=== PATIENT | female | born 1955 | race Hispanic/Latino ===

== ENCOUNTER 2016-10-25 09:01 | Inpatient (IN) | payer OTHER ==
[2016-10-25] VITALS (7 sets, daily range): BP systolic 120–161; BP diastolic 62–88; PULSE 60–61; RESP 16–20; O2SAT 93–99
[~2016-10-25] VITALS: Ht 157.5 cm; Wt 134.2 kg
[~2016-10-25 09:01] MED LIST: ASPI-973 PO; ATOR80TA PO; BUPR150T9 PO; CHOL100045 PO; CLOP75TA28 PO; CYAN500 PO; FLUO20CA25 PO; FLUT1DIS5 IH; FRSM80T PO; INSLIS SUBQ; INSU100V7 SUBQ; ISOS60TA2 PO; METO100T3 PO; MTH4T PO; RANI150T11 PO
[2016-10-25] MEDS ORDERED: Polyethylene Glycol (PEG) 17 Gm Powder PO PRN (11:00)
[2016-10-25] MEDS ORDERED: Ondansetron 2 mg/mL 2 mL Inj IVPUSH PRN (11:00)
[2016-10-25] MEDS ORDERED: Atropine 1 mg/10 mL (Code) Syringe IVPUSH PRN (11:00)
[2016-10-25] MEDS ORDERED: Alum-Mag Hydrox-Simeth 30 mL Suspension PO PRN (11:00)
[2016-10-25] MEDS ORDERED: Senna-Docusate 8.6-50 mg Tablet PO PRN (11:00)
[2016-10-25] MEDS ORDERED: WARF7.5T4 PO (13:20)
[2016-10-25] MEDS ORDERED: FERR324T2 PO (13:21)
--- NOTE | 2016-10-25 13:38 | NUR ---
Feliberto/ Hypoglycemia Pt admitted to [facility] from home around 0930. Pt A&Ox3, vitals stable and family at bedside. Admit completed including med rec from home pill bottles. No c/o pain, just slight SOB, placed on 2L NC. MD aware and rounding soon. Baseline EKG done. Blood Glucose checked for lunch and the pt was 46. Gave a couple orange juices, along with a coke. Pt diaphoretic and stating she isn't feeling well and extremely anxious. IV trying to be started by another RN and needed to call IV therapy, they will be by shortly. Blood sugar checked Q15 min till her last blood sugar was 183. Will page and get sliding scale ordered. Continue to monitor
[2016-10-25] MEDS ORDERED: Glucose 40% Oral Gel 15 Gm Tube PO PRN (15:00)
[2016-10-25] MEDS: Sodium Chloride LOK Flush 10 mL Syringe IVFLUSH SCH ×2 (17:01→22:23)
[2016-10-25] MEDS: Insulin LISPRO 300 Unit/3 mL Inj SUBQ SCH ×2 (17:47→21:39)
--- NOTE | 2016-10-25 18:46 | HP ---
[address] [address] HISTORY AND PHYSICAL PATIENT: BERENICE PACE : 1955 MR#: [id number] ADMIT: 10/25/2016 JOB ID: [id number] DATE OF SERVICE: 10/25/2016 CHIEF COMPLAINT: Paroxysmal AFib and palpitations. HISTORY OF PRESENT ILLNESS: The patient is a delightful, 61-year-old woman with coronary artery disease, status post percutaneous coronary intervention to right coronary artery; diabetes (uncontrolled), sick sinus syndrome and paroxysmal AFib, status post dual-chamber permanent pacemaker. She also has hyperlipidemia and excess weight. She is admitted for sotalol load after experiencing chest discomfort and palpitations with relatively reassuring pharmacologic stress test with myocardial perfusion imaging, April 2016. Her atrial fibrillation burden is reported by the device as being 1.1%, with both paroxysmal atrial fibrillation and paroxysmal atrial flutter. 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 She is pacemaker dependent and 95% A-paced. REVIEW OF SYSTEMS: Significant for severe fatigue and disabling palpitations, most recently at her daughter's wedding, which were correlated and timed to atrial flutter with rapid ventricular response. This is happening despite taking Toprol-XL 200 mg twice a day. PAST MEDICAL HISTORY: 1. Coronary artery disease, status post stent and rotablator to RCA; 3 x18 Xience drug-eluting stent was deployed. 2. Repeat cardiac catheterization, September 2012, for exertional chest tightness and crescendo angina demonstrated 90-95 proximal RCA stenosis. This was noted in October 2012 and this is the lesion that was treated with rotablator. It appears to be due to in-stent restenosis and Xience drug-eluting stent, 3.5 x 15 was deployed. 3. Diabetes--uncontrolled. Most recent hemoglobin A1c was 9.9%. 4. Hyperlipidemia--controlled with the exception of elevated triglycerides. 5. Paroxysmal AFib, diagnosed July 2012; unable to tolerate amiodarone due to hyperthyroidism. 6. Tachybrady syndrome, status post [facility] dual-chamber permanent pacemaker implanted August 04, 2012. 7. Paroxysmal A-flutter, status post cavotricuspid isthmus ablation, performed May 16, 2013. 8. Obstructive sleep apnea. 9. Excess weight. BMI greater than 40. 10. Family history of coronary artery disease. 11. Depression. 12. Residual suppressed TSH. SOCIAL HISTORY: The patient lives at home with family. She does not smoke and does not drink alcohol in excess. FAMILY HISTORY: Daughter with congenital heart disease and another daughter with diabetes. ALLERGIES: AMIODARONE, as outlined above. HOME MEDICATIONS: 1. Atorvastatin 80 mg daily. 2. Metoprolol tartrate 200 mg twice a day. 3. Lasix 80 mg daily. 4. Imdur 60 mg daily. 5. Bupropion 150 mg daily. 6. Fluoxetine 40 mg daily. 7. Lispro sliding scale insulin, but she says she actually takes 30 units subcutaneously twice a day. 8. Lantus 30 units subcutaneously twice a day. 9. Bydureon was prescribed but patient has not started yet. 10. Zantac 150 mg twice a day. 11. Warfarin dosed by the pro-time nurse. Currently patient is taking 7.5 mg Tuesday, Tuesday, Tuesday, , Tuesday, Tuesday and Tuesday. Her most recent INR was actually 5, as of October 21, 2016. She was instructed to skip/hold medication for two days. REVIEW OF SYSTEMS: Significant for easy bleeding, bruising, fatigue, chest pain, irregular heartbeat and awareness of palpitations, shortness of breath, dizziness, muscle weakness. Otherwise, 10-point review of systems is negative. PHYSICAL EXAMINATION: Weight 300 pounds, blood pressure 120/70, heart rate is 60 beats per minute. Overweight woman lying flat in bed. No apparent distress. Eyes: No scleral icterus. Neck supple. No lymphadenopathy. No carotid bruits. Heart: Normal S1, S2. No murmurs. Lungs: Clear to auscultation anteriorly. Abdomen soft, positive bowel sounds. No hepatosplenomegaly. Extremities: Warm, well perfused. No clubbing, cyanosis, or edema. Skin: No rashes or lesions. Neuro grossly intact. Her labs have been reviewed. Her magnesium is 2. Other labs are ordered and pending. INR has been ordered and pending. Most recent labs in clinic showed creatinine of 1, potassium 4.5. Hematocrit is normal. Liver function tests were significant for slightly elevated alkaline phosphatase at 152, otherwise normal. Most recent INR was 5, and she was instructed to hold two doses of her warfarin. EKG is reassuring. Normal sinus rhythm. A-paced, V-sensed. ASSESSMENT AND PLAN: This is a 61-year-old woman with paroxysmal atrial fibrillation. She is admitted with sotalol load. Will continue all her home meds plus add sotalol. Given that she is a diabetic, she would ideally also benefit from initiating GUS inhibitor, and will discuss that in a little bit more detail tomorrow. Of note, her LV systolic function is preserved. Thank you very much for the opportunity to participate in her care.
[2016-10-25] MEDS: Insulin GLARgine 100 Unit/mL Syringe SUBQ SCH (21:32)
[2016-10-25 22:05] LABS: INR 2.34 ratio
--- NOTE | 2016-10-25 23:52 | PCM.CONPHA ---
Subjective Date of Service: Oct 25, 2016 Objective Vital Signs Date Time Temp Pulse Resp B/P Pulse Ox O2 Delivery O2 Flow Rate FiO2 10/25/16 23:36 37.2 61 20 153/78 99 Nasal Cannula 1.00 10/25/16 21:47 Supplement Oxygen 10/25/16 21:45 36.7 60 18 158/62 98 Nasal Cannula 2.00 10/25/16 20:00 60 10/25/16 17:02 Supplement Oxygen 10/25/16 16:29 34.7 60 17 139/63 98 Room Air 10/25/16 12:44 36.4 60 16 161/88 93 10/25/16 09:09 36.9 60 18 120/62 93 Room Air 10/25/16 09:07 60 Weight (Kilograms): 137.200 Height (Feet): 5 Height (Inches): 2.00 Test 10/25/16 13:45 10/25/16 21:36 Magnesium Level 2.0mg/dL (1.6-2.6) Prothrombin Time 25.5sec (8.1-12.5) Prothromb Time International Ratio 2.34ratio Assessment/Plan Assessment/Plan WARFARIN MANAGEMENT A\ 61 YO F admitted for AFIB Home dose Warfarin 7.5mg PO daily Current INR=2.34 Goal INR =2-3 Rn reports no bleeding. Pt had not taken Warfarin tonight P\ Will continue home Warfarin 7.5mg po x1 tonight and will check INR in the morning Carter Rosa [facility] Oct 25, 2016 23:52
[2016-10-26] VITALS (8 sets, daily range): BP systolic 142–178; BP diastolic 68–82; PULSE 59–63; RESP 17–20; O2SAT 92–98
[2016-10-26 03:32] LABS: Mean Corpuscular Volume 94.5 fL (81-100)
[2016-10-26 03:54] LABS: INR 2.58 ratio
--- NOTE | 2016-10-26 06:41 | NUR ---
Glucose/Tele Assumed care @ 1930. A/O, noted to have increase/elevated glucose levels, Insulin per SS/orders; last glucose check trending down Pt. indicated some chest pain intermittently, which resolved on its own. Noted to have decrease SPO2 (85-89%) when sleeping. 02 increase to 3L, and continuous pulse oximeter in place. Tele: A-Paced in 60's, with periods of PMT (Pacer Mediated Tachycardia) - pt. denies pain or symptoms.
[2016-10-26] MEDS: Insulin LISPRO 300 Unit/3 mL Inj SUBQ SCH ×4 (08:00→22:17)
[2016-10-26] MEDS: buPROPion XL 150 mg ER24 Tablet PO SCH (08:41)
[2016-10-26] MEDS: Sodium Chloride LOK Flush 10 mL Syringe IVFLUSH SCH ×3 (08:41→23:40)
[2016-10-26] MEDS: Insulin GLARgine 100 Unit/mL Syringe SUBQ SCH ×2 (08:41→21:29)
[2016-10-26] MEDS: Isosorbide Mononitrate 60 mg ER24 Tablet PO SCH (08:44)
--- NOTE | 2016-10-26 13:39 | NUR ---
AM Glucose/ Insulin AM glucose was 166. Administered 30 units of Lantus, with held sliding scale till after Sotolol was given due to hypoglycemia episode yesterday. Rechecked blood glucose for lunch and it was 309. Administered the full amount of sliding scale insulin with lunch. Will continue to monitor.
--- NOTE | 2016-10-27 03:30 | PROG NOTE ---
[address] [address] PROGRESS NOTE PATIENT: BERENICE PACE : 1955 MR#: [id number] ADMIT: 10/25/2016 JOB ID: [id number] DATE: 10/26/2016 SUBJECTIVE: Overnight, patient had brief episodes of palpitations. She says no chest pain or shortness of breath. OBJECTIVE: Vital signs: Temperature 37.1 degrees, blood pressure 142/82, up to 178/76, pulse 59 to 63 beats per minute, satting 92% to 98% on 1 to 2 L nasal cannula. Well-nourished woman in no apparent distress. Eyes: No scleral icterus. Heart: Normal S1, S2. No murmurs, rubs, or gallops. Lungs: Clear to auscultation anteriorly. Abdomen: Soft, positive bowel sounds. No hepatosplenomegaly. MEDICATIONS: Reviewed. She is tolerating sotalol load with normal QT interval corrected for rate and she denies any chest discomfort. On telemetry, she is mostly paced but she did have episodes of what appears to be atrial tachycardia that was tracked. A limited device check was done and basically her atrium was mostly electrically silent even when the backup rate was turned down to 40 beats per minute. However, intermittently she will go into atrial tachycardia with tracking. ASSESSMENT AND PLAN: 1. A 61-year-old woman with paroxysmal atrial fibrillation admitted for sotalol load. Continue her home meds and add sotalol. a. Continue monitoring QT interval corrected for rate 2 hours after each dose. 2. Hypertension: Patient's blood pressure is uncontrolled despite metoprolol tartrate 100 twice a day, sotalol 80 mg twice a day, Lasix 80 mg daily. I recommend adding lisinopril, will start at a medium dose of 10 mg daily and monitor the patient closely. 3. Atrial tachycardia. Device check was performed by Branden from [facility] and his impression is that the A-sensed, V-paced episodes are due to 2:1 tracking . My plan is to drop to tracking rate from 130 beats per minute down to 100 beats per minute. Thank you very much for the opportunity to evaluate her.
[2016-10-27 04:23] VITALS: BP 154/90; PULSE 60; RESP 18; O2SAT 99
[2016-10-27 04:57] LABS: INR 3.09 ratio
--- NOTE | 2016-10-27 05:15 | NUR ---
skin tear lab removed tape from previous lab draw and pts skin tore at the left inner elbow, placed tele and op site over skin tear.
--- NOTE | 2016-10-27 05:34 | NUR ---
blood glucose pts BG at 2130 263 gave 30units of lantus at 2215 pts BG 247 gave 2units regular insulin, rechecked BG at 0300 178 and at 0520 BG 112, pt asymptomatic, will cont to monitor
[2016-10-27] MEDS: Insulin LISPRO 300 Unit/3 mL Inj SUBQ SCH ×2 (08:00→12:04)
[2016-10-27] MEDS: Insulin GLARgine 100 Unit/mL Syringe SUBQ SCH (08:49)
[2016-10-27 08:51] VITALS: BP 153/51; PULSE 60; RESP 20; O2SAT 98
[2016-10-27] MEDS: Isosorbide Mononitrate 60 mg ER24 Tablet PO SCH (08:55)
[2016-10-27] MEDS: Sodium Chloride LOK Flush 10 mL Syringe IVFLUSH SCH (08:55)
[2016-10-27] MEDS: buPROPion XL 150 mg ER24 Tablet PO SCH (08:55)
[2016-10-27 11:18] VITALS: PULSE 60
[2016-10-27 14:10] VITALS: BP 129/57; PULSE 60; RESP 20; O2SAT 93
--- NOTE | 2016-10-27 16:07 | PCM.DIMED ---
Discharge Instructions Date of Service Oct 27, 2016 Dates of Hospitalization Oct 25, 2016 at 09:01 Discharge Diagnosis Discharge Diagnosis paroxysmal afib Medication Instructions Additional med instructions start 2 new medicines: Sotalol 80 mg twice a day and Lisinopril 10 mg daily Diet Discharge Diet: Heart Healthy, Diabetic Activity Discharge Activity: No restrictions Call your provider Call your provider for: Shortness of breath, Chest pain Patient Instructions Patient Instructions follow up in about 1 month Follow-up with PCP in: 4 weeks Provider: Magi Mensah MD, Yelena K MD Oct 27, 2016 16:07
[2016-10-27] MEDS ORDERED: LISI-610 PO (16:11)
[2016-10-27] MEDS ORDERED: METO100T3 PO (16:11)
[2016-10-27] MEDS ORDERED: BET80 PO (16:11)
--- NOTE | 2016-10-27 16:11 | PCM.DIMED ---
Discharge Instructions Date of Service Oct 27, 2016 Dates of Hospitalization Oct 25, 2016 at 09:01 Discharge Diagnosis Discharge Diagnosis paroxysmal afib Medication Instructions Additional med instructions start 2 new medicines: Sotalol 80 mg twice a day and Lisinopril 10 mg daily reduce metoprolol from 200 mg twice a day to 100 mg twice a day Diet Discharge Diet: Heart Healthy, Diabetic Activity Discharge Activity: No restrictions Call your provider Call your provider for: Shortness of breath, Chest pain Patient Instructions Patient Instructions follow up in about 1 month Follow-up with PCP in: 4 weeks Provider: Magi Mensah MD, Yelena K MD Oct 27, 2016 16:11
--- NOTE | 2016-10-27 17:04 | DIS ---
[address] [address] DISCHARGE SUMMARY PATIENT: BERENICE PACE : 1955 MR#: [id number] ADMIT: 10/25/2016 JOB ID: [id number] DIS: 10/27/2016 DISCHARGE DIAGNOSES: 1. Paroxysmal atrial fibrillation. 2. Paroxysmal atrial flutter. 3. Dual-chamber permanent pacemaker where patient is pacemaker dependent and about 90% atrial paced. HOSPITAL COURSE: The patient was admitted for sotalol. Sotalol was loaded. QT interval remained low most recently at 440 msec. The patient had no VT. In the course of her hospitalization, I noted that her rate response feature was overly aggressive so I made some programming adjustments because I noticed that when she would get up to go to the restroom her rate would rev up to 130 beats per minute and she was feeling short of breath and tired when this was happening, so what I did was I dropped her upper tracking rate and upper sensor rate from 130 beats per minute to 100 beats per minute. I prolonged her sensed AV delay from 170 msec up to 225 msec. I prolonged her paced AV delay from 200 msec up to 250 msec. I dropped the slope on her activity sensor from 12 down to 7, and I dropped her response from fast to slow. She got up to go to the bathroom and she said she felt much, much better. She is happy with how she is doing. Additionally, worked on hypertension management. I started lisinopril 10 mg daily. She is tolerating it well with no cough. Therefore patient is discharged home in stable condition on the following medications: 1. Atorvastatin 80 mg daily. 2. Aspirin 81 mg daily. 3. Sotalol 80 mg twice a day, new medication. 4. Metoprolol tartrate dose reduced from 200 mg twice a day down to 100 mg twice a day. 5. Lisinopril, new medication, 10 mg daily. 6. Bupropion 150 mg daily. 7. Vitamin D3 1000 International Units daily. 8. Iron sulfate 324 mg daily. 9. Fluoxetine 40 mg daily. 10. Lasix 80 mg daily. 11. Lantus 40 mg twice a day. 12. Lispro sliding scale as instructed by primary care provider. 13. Imdur 60 mg daily. 14. Zantac 150 mg twice a day. 15. Warfarin 7.5 mg daily. Thank you very much for the opportunity to participate in this patient's care. I anticipate seeing her in clinic in about a month.
--- NOTE | 2016-10-27 17:07 | NUR ---
Discharge The pt left with a [employer] via wheelchair at 1710 with all her belongings. The pt and her daughter verbalized understanding of all the discharge teaching presented, including new scripts and follow up appointment info. The pt left A&Ox3 with VSS, and is being transported home with her daughter.
--- NOTE | 2016-10-27 17:17 | NUR ---
Social Work: Screening / Discharge Data: Pt is a 61 y/o female admitted for sotalol loading for afib. Pt's PCP is Dr Villeda, pt's insurance is [employer] [place]. EMR reviewed. D/C orders are in. Pt discussed in multidisciplinary rounds. Readmit score is 3. No d/c planning needs identified at this time. DIST[employer]BUTION TRANSFORMER [employer]SEMBLER will continue to follow if needs arise. Assessment: Pt who is independent at baseline, currently capable of self care. Plan: Pt will d/c home today via POV. No d/c planning needs identified at this time. [employer] TRANSFORMER [employer]SEMBLER will continue to follow if needs arise. CAROLANN Castro
== END 2016-10-27 17:24 | disposition home or self-care (01) | DRG 309 ==
LOC: PCC 09:01
PROVIDERS: ADMIT Internal Medicine; ATTEND Internal Medicine
PROC: 5A2204Z Restoration of Cardiac Rhythm, Single (ICD-10-PCS; principal; 2016-10-25)
DX: I48.0 Paroxysmal atrial fibrillation (principal); Z68.43 Body mass index [BMI] 50.0-59.9, adult; Z95.0 Presence of cardiac pacemaker; Z95.5 Presence of coronary angioplasty implant and graft; I48.92 Unspecified atrial flutter; G47.33 Obstructive sleep apnea (adult) (pediatric); Z79.4 Long term (current) use of insulin; Z79.01 Long term (current) use of anticoagulants; I10 Essential (primary) hypertension; I47.1 Supraventricular tachycardia

== ENCOUNTER 2016-11-18 16:23 | Emergency (ER) | payer OTHER ==
[~2016-11-18] VITALS: Ht 157.5 cm; Wt 128.6 kg
[~2016-11-18 16:23] MED LIST changes: +BET80 PO; -CLOP75TA28 PO; -CYAN500 PO; +FERR324T2 PO; -FLUT1DIS5 IH; +LISI-610 PO; -MTH4T PO; +WARF7.5T4 PO
[2016-11-18 16:26] VITALS: BP 104/52; PULSE 60; RESP 20; O2SAT 96
--- NOTE | 2016-11-18 16:29 | ED.REPORT ---
HPI-General Illness Date of Service Nov 18, 2016 ED Provider: Dr. Kenney Pt is a 61 y/o Yemeni speaking female anticoagulated on Warfarin w/ a hx of CAD s/p stenting, paroxysmal a-fib, IDDM, HTN, presenting to the ED with her family c/o diarrhea onset 3 days ago. The patient had a syncopal episode 4 days ago and since the event has been experiencing watery diarrhea about 5-6 episodes each day with associated lightheadedness, weakness, anorexia, some bowel incontinence, and nausea. Pt denies bloody stool, abdominal pain, fever, sore throat, cough, REID, sick contacts, abnormal food consumption, dysuria. She recently started 2 new medications about 2-3 weeks ago, Bydureon for diabetes and an unknown cardiac med. Her last injection of Bydureon was 4 days ago and the previous 2 injections caused no problems. She has had cholecystectomy and C- sections. PCP: [facility]: [facility] Nursing Notes Stated Complaint: A-FIB, DIARRHEA, SENT BY Chief Complaint: Dysrhythmia/Cardiac Nursing Notes Reviewed: Yes Allergies: Coded Allergies: amiodarone (Verified Allergy, Severe, Med interfernece, 12/07/15) Scheduled Aspirin (Aspirin) 81 Mg Tablet 81 MG PO DAILY Atorvastatin (Lipitor) 80 Mg Tablet 80 MG PO HS Bupropion HCl (Zyban) 150 Mg Tablet.er 150 MG PO DAILY Cholecalciferol (Vitamin D3) (Vitamin D) 1,000 Unit Capsule 1,000 MG PO DAILY Ferrous Sulfate (Ferrous Sulfate) 324 Mg Tablet. 324 MG PO DAILY Fluoxetine (Fluoxetine) 20 Mg Capsule 40 MG PO QAM Furosemide (Furosemide) 80 Mg Tab 80 MG PO DAILY Increase to 160mg if retaining fluid. Insulin Glargine (Lantus U100 Insulin Vial) 100 Unit/Ml Vial 40 UNIT SUBQ BID Insulin Human Lispro (HumaLOG U100 Insulin Vial) 100 Unit/Ml Unit UNITS SUBQ TIDAC Dosage according to sliding scale Isosorbide MN ER (Isosorbide MN ER) 60 Mg Tab.er.24h 60 MG PO DAILY Lisinopril (Zestril) 10 Mg Tablet 10 MG PO DAILY Metoprolol Tartrate (Metoprolol Tartrate) 100 Mg Tablet 100 MG PO BID Ondansetron ODT (Ondansetron ODT) 4 Mg Tab.rapdis 4 MG PO TID Ranitidine (Zantac) 150 Mg Tablet 150 MG PO BID Sotalol (Betapace) 80 Mg Tablet 80 MG PO BID Warfarin Sodium (Warfarin Sodium) 7.5 Mg Tablet 7.5 MG PO DAILY General Time Seen by MD: 16:28 Chief Complaint Diarrhea Hx Obtained From: Patient Arrived By: Walk-in Sudden in Onset?: No Onset Occurred: 4 days ago Symptom Duration: Since onset Severity: Current: No pain currently Severity: Maximum: No pain Recent Healthcare: No recent hospitalization Past Medical History Past Medical History CAD s/p cardiac stent (05/2014) Admit for severely supratherapeutic INR in 09/2013 Admit for sepsis, [facility] Pneumonia h/o paroxysmal Afib/Flutter Chronic lower extremity edema Sleep apnea/Obesity hypoventilation syndrome on home O2 at night Restless leg syndrome Chronic Back Pain Pulmonary Nodule TachyBrady Insulin dependent diabetes mellitus Hypertension GERD Past Surgical History Cardiac ablation Cardiac stent placement proximal RCA 06/04/2014 Ablation for A-flutter 04/2013 Reports: Angioplasty, , Cataract surgery, Cholecystectomy Reports: Pacemaker insertion Smoking History Never Smoker Social History Interpreting Alcohol Use: Denies alcohol use Drug Use: Denies drug use Ambulatory Status Independent Review of Systems Full Review of Systems Constitutional: Denies: Fever Ears / Nose / Throat: Denies: Sore throat Respiratory: Denies: Non-productive cough GI: Reports: Diarrhea, Nausea, Denies: Abdominal pain, Bloody/tarry stool, Vomiting Female: Denies: Dysuria Neurologic: Reports: Bowel dysfunction, Lightheaded, Denies: Headache Complete sys rev & neg: except as marked. Physical Exam Vital Signs Vital Signs Date Time Temp Pulse Resp B/P Pulse Ox O2 Delivery O2 Flow Rate FiO2 11/18/16 22:34 85 16 105/85 98 11/18/16 21:20 63 18 105/64 100 11/18/16 18:00 88 12 101/64 98 Room Air 11/18/16 16:26 36.2 60 20 104/52 96 Room Air Initial VS: Reviewed, Vital signs normal Head / Eyes: Atraumatic, Normocephalic ENT: Mucous membranes moist, Conjunctiva normal Neck: Full range of motion Respiratory: Breath sounds normal, Clear to auscultation, No respiratory distress Cardiovascular: Regular rate & rhythm, Heart sounds normal Extremities: Vascular intact, Neuro intact, No swelling Skin: Warm, Dry, No cyanosis Neurologic: Alert, Oriented, Nonfocal Psychiatric: Mood/affect normal, Behavior normal, Normal thought content General/Constitutional: Awake, Alert, Cooperative, Not toxic appearing Appearance / Presentation: Positive: Obese, morbidly Abdomen: Atraumatic, Soft, No guarding, No rebound, BS normoactive Tenderness/Guarding/Rebound: Positive: Tender epigastric (mild) Interpretation & Diagnostics Lab Results Interpretation Result Diagram: 11/18/16 1705 11/18/16 1705 Test 11/18/16 17:05 White Blood Count 10.7th/mm3 (3.8-10.1) Red Blood Count 5.13mil/mm3 (3.90-5.20) Hemoglobin 15.3g/dL (12.0-15.6) Hematocrit 46.3% (35.0-46.0) Mean Corpuscular Volume 90.3fL (81-100) Mean Corpuscular Hemoglobin 29.8pg (27.0-35.0) Mean Corpuscular Hemoglobin Concent 33.0% (32.0-37.0) Red Cell Distribution Width 14.3% (12.3-15.4) Platelet Count 299bil/L (150-400) Neutrophils (%) (Auto) 65.0% (40-74) Lymphocytes (%) (Auto) 26.8% (14-46) Monocytes (%) (Auto) 6.5% (4-12) Eosinophils (%) (Auto) 1.2% (0-5) Basophils (%) (Auto) 0.2% (0-3) Prothrombin Time 26.1sec (8.1-12.5) Prothromb Time International Ratio 2.40ratio Sodium Level 137mEq/L (134-144) Potassium Level 4.2mEq/L (3.5-5.2) Chloride Level 98mEq/L (97-108) Carbon Dioxide Level 22mmol/L (18-29) Blood Urea Nitrogen 23mg/dL (8-27) Creatinine 1.18mg/dL (0.57-1.00) Estimat Glomerular Filtration Rate 66mL/min (>59) Glucose Level 199mg/dL (60-99) Calcium Level 9.3mg/dL (8.5-10.1) Magnesium Level 1.8mg/dL (1.6-2.6) Total Bilirubin 0.3mg/dL (0.0-1.2) Aspartate Amino Transf (AST/SGOT) 32U/L (0-50) Alanine Aminotransferase (ALT/SGPT) 36U/L (0-32) Alkaline Phosphatase 181U/L (25-165) Troponin T < 0.010ug/L (0.0-0.011) Total Protein 7.8g/dL (6.4-8.4) Albumin 3.8g/dL (3.4-5.0) Lipase 28U/L (13-60) ECG Interpretation ECG Interpretation: Atrial paced rhythm Time: 17:18 Interpreted by: ED physician Normal ECG Interpretation: No acute ischemic changes X-Ray Chest Interpretation Chest Xray Interpretation: IMPRESSION: Cardiomegaly. No acute pulmonary findings. Dictated by: Kelsey Valentin M.D. on 11/18/2016 at 16:56 Approved by: Kelsey Valentin M.D. on 11/18/2016 at 16:57 View: Portable, 1 view Interpretation / Wet Read by: Interpret - Radiologist CT Abd / Pelvis Interpretation IMPRESSION: A nonspecific bowel gas pattern, prior cholecystectomy. No operative complication found. No sign of intestinal obstruction or perforation seen. Dictated by: Lonnie Montgomery M.D. on 11/18/2016 at 20:50 Approved by: Lonnie Montgomery M.D. on 11/18/2016 at 20:51 Study type: Abdominal CT IV contrast Interpretation / Wet Read by: Interpret - Radiologist Re-Eval/Medical Decision Med Decision/Clinical Course Given normal saline 2 L and Zofran with good results. Was unable to produce a stool specimen while in the department. Status post cholecystectomy, noted to have an elevation in alkaline phosphatase but no biliary abnormality on CT. May be related to her new med, no recent abx or ill contacts. Tolerating PO. Source of Hx: Old records Time of Eval: 19:04 Re-Evaluation/Progress Note: Pt rechecked. Feeling better after fluids. Time of Eval: 19:31 Re-Evaluation/Progress Note: Pt rechecked. Informed pt of plan for CT scan. Time of Eval: 21:59 Re-Evaluation/Progress Note: Pt rechecked. Feeling better. Discussed lab and imaging results. Informed pt of plan for discharge. Pt understands and agrees with plan for discharge. F/U instructions and RTER warnings given. All questions addressed. Counseled Regarding: Diagnosis, Lab results, Need for follow-up, When/why to return to ED Discharge & Departure Primary Impression: Diarrhea Diarrhea type: unspecified type Qualified Code: R19.7 - Diarrhea, unspecified Additional Impression: Medication side effect Encounter type: initial encounter Qualified Code: T88.7XXA - Unspecified adverse effect of drug or medicament, initial encounter Disposition: Home Discharge Condition All VS Reviewed: Yes Condition: Stable Patient Instructions: Acute Diarrhea (ED) Additional Instructions: Emergency Department evaluation included interview, examination labs and CT of the abdomen and pelvis. No serious cause for her diarrhea was identified, it is possible that this is an effect from the recenty started medication bydurdureon. Please contract your endocrine doctor before any further injections of this. Get adequate fluids, ondansetron as needed for nausea. Follow up with primary care if this has not resolved soon. Return for increasing diarrhea, vomiting fevers or abdominal pain. Referrals: Harris Villeda MD (PCP) Scribe Attestation Portions of this note were transcribed by Eh Sheppard. I, Dr. Kenney personally performed the history, physical exam and medical decision-making; I reviewed and confirmed the accuracy of the information in the transcribed note. copies to: Harris Villeda MD, Donald L MD Nov 18, 2016 16:29 EH SHEPPARD Nov 18, 2016 16:31
--- NOTE | 2016-11-18 16:58 | DRSVH ---
PROCEDURE: X-RAY CHEST ONE VIEW, PORTABLE ([id number]) INDICATIONS: a fib/unsteady on feet TECHNIQUE: One view of the chest was acquired. COMPARISON: [facility], CR, XR CHEST 2VW, 12/23/2015, 8:51. FINDINGS: Surgical changes and devices: Dual-lead cardiac pacer is unchanged. Lungs and pleura: No pleural effusions or pneumothorax. Lungs are clear. Mediastinum: Mediastinal contours appear normal. Heart size is enlarged. Bones and chest wall: No suspicious bony lesions. Overlying soft tissues appear unremarkable. IMPRESSION: Cardiomegaly. No acute pulmonary findings. Dictated by: Kelsey Valentin M.D. on 11/18/2016 at 16:56 Approved by: Kelsey Valentin M.D. on 11/18/2016 at 16:57
[2016-11-18] MEDS ORDERED: 0.9% Sodium Chloride 1,000 ML IV ONE ×2 (17:05→19:35)
[2016-11-18] MEDS ORDERED: Ondansetron 2 mg/mL 2 mL Inj IVPUSH PRN (17:05)
[2016-11-18 17:08] LABS: BASOPHILS % (AUTO) 0.2 % (0-3); EOSINOPHILS % (AUTO) 1.2 % (0-5); MONOCYTES % (AUTO) 6.5 % (4-12); Mean Corpuscular Hemoglobin 29.8 pg (27.0-35.0); Mean Corpuscular Volume 90.3 fL (81-100); Platelet Count 299 bil/L (150-400)
[2016-11-18 17:30] LABS: INR 2.4 ratio
[2016-11-18 17:43] LABS: TROPONIN T < 0.010 ug/L (0.0-0.011)
[2016-11-18 17:47] LABS: Magnesium 1.8 mg/dL (1.6-2.6)
[2016-11-18 18:00] VITALS: BP 101/64; PULSE 88; RESP 12; O2SAT 98
--- NOTE | 2016-11-18 20:53 | DRSVH ---
PROCEDURE: CT ABDOMEN AND PELVIS WITH CONTRAST ([id number]) INDICATIONS: nausea, diarrhea, elevated alk phos post edbora TECHNIQUE: After the administration of intravenous contrast, 5 mm thick sections acquired from the diaphragm to the symphysis. 5 mm coronal and sagittal reformats were acquired. For radiation dose reduction, the following was used: automated exposure control, adjustment of mA and/or kV according to patient dwight quintero. COMPARISON: , CT, ABD/PELVIS W/CON (PNL), 10/05/2005, 0:22. FINDINGS: Image quality: Excellent. ABDOMEN: Lung bases: Lung bases are clear. Heart size is normal. Solid organs: Liver and spleen are normal in size and enhancement. A splenule is again seen at the splenic hilum Gallbladder has been resected. Biliary system is non dilated. Pancreas enhances reji lly. No adrenal nodules. Kidneys demonstrate normal size and enhancement, without hydronephrosis. Peritoneum and bowel: Bowel loops demonstrate normal wall thickness and caliber. No free fluid or a ir. Nodes and vessels: No retroperitoneal or mesenteric adenopathy by size criteria. Aorta and inferior vena cava are normal in size. Miscellaneous: No ventral hernias. PELVIS: Genitourinary: Bladder wall thickness is normal. Miscellaneous: No inguinal hernias or adenopathy. Bones: No suspicious bony lesions. No vertebral body compression fractures. IMPRESSION: A nonspecific bowel gas pattern, prior cholecystectomy. No operative complication found . No sign of intestinal obstruction or perforation seen. Dictated by: Lonnie Montgomery M.D. on 11/18/2016 at 20:50 Approved by: Lonnie Montgomery M.D. on 11/18/2016 at 20:51
[2016-11-18 21:20] VITALS: BP 105/64; PULSE 63; RESP 18; O2SAT 100
[2016-11-18] MEDS ORDERED: ONDA4TAB12 PO (22:06)
[2016-11-18 22:34] VITALS: BP 105/85; PULSE 85; RESP 16; O2SAT 98
== END 2016-11-18 22:35 | disposition home or self-care (01) ==
LOC: SED 16:23
DX: R19.7 Diarrhea, unspecified (principal); R42 Dizziness and giddiness; R63.0 Anorexia; R15.9 Full incontinence of feces; R53.1 Weakness; R11.0 Nausea; T46.905A Adverse effect of unspecified agents primarily affecting the cardiovascular system, initial encounter; T38.3X5A Adverse effect of insulin and oral hypoglycemic [antidiabetic] drugs, initial encounter; Y93.89 Activity, other specified; Y92.89 Other specified places as the place of occurrence of the external cause; Y99.8 Other external cause status; I11.9 Hypertensive heart disease without heart failure; E11.59 Type 2 diabetes mellitus with other circulatory complications; I48.0 Paroxysmal atrial fibrillation; I25.10 Atherosclerotic heart disease of native coronary artery without angina pectoris; K21.9 Gastro-esophageal reflux disease without esophagitis; G47.30 Sleep apnea, unspecified; Z87.01 Personal history of pneumonia (recurrent); Z95.0 Presence of cardiac pacemaker; Z95.5 Presence of coronary angioplasty implant and graft; Z98.890 Other specified postprocedural states; Z79.01 Long term (current) use of anticoagulants; Z79.4 Long term (current) use of insulin; Z79.82 Long term (current) use of aspirin; Z88.8 Allergy status to other drugs, medicaments and biological substances
CPT/HCPCS: 36415; 71010; 74177; 80053; 83690; 83735; 84484; 85025; 85610; 93005; 96361; 96374; 99285; J2405; J7030; Q9967

== ENCOUNTER 2016-11-22 21:45 | Emergency (ER) | payer OTHER ==
[~2016-11-22] VITALS: Ht 157.5 cm; Wt 128.0 kg
[~2016-11-22 21:45] MED LIST changes: +ONDA4TAB12 PO
[2016-11-22 22:29] VITALS: BP 93/52; PULSE 60; RESP 18; O2SAT 91
--- NOTE | 2016-11-22 22:48 | ED.REPORT ---
HPI-General Illness Date of Service Nov 22, 2016 ED Provider: Ted Wiggins MD A 61 year old female on Warfarin with a history of CAD, sepsis, atrial fibrillation, pacemaker placement, hypertension, diabetes, cholecystectomy, c- section and GERD presents to the ED complaining of diarrhea. The pt has been experiencing multiple episodes of diarrhea daily for eight days, and noticed blood in the diarrhea this morning. This is accompanied up abdominal pain, though she denies fever, chills, nausea or vomiting. The pt has been able to drink fluids but has a reduced appetite. She was seen in Urgent Care and the ED on 11/18/2016 and given Zofran, which she has been taking regularly. Nursing Notes Stated Complaint: 8 DAYS DIARRHEA Chief Complaint: Female Abdominal Pain Nursing Notes Reviewed: Yes Allergies: Coded Allergies: amiodarone (Verified Allergy, Severe, [facility], 12/07/15) Scheduled Aspirin (Aspirin) 81 Mg Tablet 81 MG PO DAILY Atorvastatin (Lipitor) 80 Mg Tablet 80 MG PO HS Bupropion HCl (Zyban) 150 Mg Tablet.er 150 MG PO DAILY Cholecalciferol (Vitamin D3) (Vitamin D) 1,000 Unit Capsule 1,000 MG PO DAILY Ferrous Sulfate (Ferrous Sulfate) 324 Mg Tablet.dr 324 MG PO DAILY Fluoxetine (Fluoxetine) 20 Mg Capsule 40 MG PO QAM Furosemide (Furosemide) 80 Mg Tab 80 MG PO DAILY Increase to 160mg if retaining fluid. Insulin Glargine (Lantus U100 Insulin Vial) 100 Unit/Ml Vial 40 UNIT SUBQ BID Insulin Human Lispro (HumaLOG U100 Insulin Vial) 100 Unit/Ml Unit UNITS SUBQ TIDAC Dosage according to sliding scale Isosorbide MN ER (Isosorbide MN ER) 60 Mg Tab.er.24h 60 MG PO DAILY Lisinopril (Zestril) 10 Mg Tablet 10 MG PO DAILY Metoprolol Tartrate (Metoprolol Tartrate) 100 Mg Tablet 100 MG PO BID Metronidazole (Metronidazole) 500 Mg Tablet 500 MG PO TID Ondansetron ODT (Ondansetron ODT) 4 Mg Tab.rapdis 4 MG PO TID Ranitidine (Zantac) 150 Mg Tablet 150 MG PO BID Sotalol (Betapace) 80 Mg Tablet 80 MG PO BID Warfarin Sodium (Warfarin Sodium) 7.5 Mg Tablet 7.5 MG PO DAILY General Time Seen by : 22:47 Chief Complaint Diarrhea Hx Obtained From: Patient Arrived By: Walk-in Sudden in Onset?: No Onset Occurred: More than a week ago... Recent Healthcare: Recent doctor visit, Recent hospitalization Similar Sx Previous: No Past Medical History Past Medical History CAD s/p cardiac stent (05/2014) Admit for severely supratherapeutic INR in 09/2013 Admit for sepsis, [facility] Pneumonia h/o paroxysmal Afib/Flutter Chronic lower extremity edema Sleep apnea/Obesity hypoventilation syndrome on home O2 at night Restless leg syndrome Chronic Back Pain Pulmonary Nodule TachyBrady Insulin dependent diabetes mellitus Hypertension GERD Past Surgical History Cardiac ablation Cardiac stent placement proximal RCA 06/04/2014 Ablation for A-flutter 04/2013 Reports: Angioplasty, , Cataract surgery, Cholecystectomy Reports: Pacemaker insertion Smoking History Never Smoker Social History Interpreting Alcohol Use: Denies alcohol use Drug Use: Denies drug use Ambulatory Status Independent Review of Systems decreased appetite Full Review of Systems Constitutional: Denies: Chills, Fever Respiratory: Denies: Non-productive cough, Shortness of breath Cardiovascular: Denies: Chest pain GI: Reports: Abdominal pain, Diarrhea, Hematochezia, Denies: Nausea, Vomiting Musculoskeletal: Denies: Back pain, Neck pain Skin: Denies Rash Complete sys rev & neg: except as marked. Physical Exam Vital Signs Vital Signs Date Time Temp Pulse Resp B/P Pulse Ox O2 Delivery O2 Flow Rate FiO2 11/23/16 04:55 36.4 68 16 112/43 94 Room Air 11/23/16 03:58 62 16 132/58 92 Room Air 11/23/16 01:37 36.6 60 16 102/50 96 Room Air 11/22/16 22:29 36.0 60 18 93/52 91 Room Air Initial VS: Reviewed General/Constitutional: Awake, Alert, No acute distress, Well hydrated Appearance / Presentation: Positive: Obese Head / Eyes: Atraumatic, Normocephalic, PERRL, EOMI ENT: Atraumatic, Airway patent, Mucous membranes moist Neck: Atraumatic, Supple, Full range of motion Respiratory / Chest: Atraumatic, Breath sounds NL, Breath sounds = bilat, No respiratory distress Cardiovascular: Heart rate NL, Regular rhythm, Heart sounds NL Abdomen: Atraumatic, Soft mild tenderness in the midepigastrium Back: Atraumatic, Full range of motion Upper Extremities Upper Extremity / MS: Full range of motion, Neurologic intact, Vascular intact bruise on the left arm from prior IV Lower Extremity / Pelvis / MS: Atraumatic, Full range of motion Skin: Atraumatic, Color NL, No rash, Warm, Dry Neurologic: Oriented X3, Speech NL, No motor deficits, No sensory deficits Psychiatric: Affect NL, Mood NL Interpretation & Diagnostics Lab Results Interpretation Result Diagram: 11/22/16 2347 11/22/16 2347 Test 11/22/16 23:47 White Blood Count 10.8th/mm3 (3.8-10.1) Red Blood Count 4.84mil/mm3 (3.90-5.20) Hemoglobin 14.6g/dL (12.0-15.6) Hematocrit 44.0% (35.0-46.0) Mean Corpuscular Volume 90.9fL (81-100) Mean Corpuscular Hemoglobin 30.2pg (27.0-35.0) Mean Corpuscular Hemoglobin Concent 33.2% (32.0-37.0) Red Cell Distribution Width 14.5% (12.3-15.4) Platelet Count 273bil/L (150-400) Neutrophils (%) (Auto) 64.0% (40-74) Lymphocytes (%) (Auto) 25.8% (14-46) Monocytes (%) (Auto) 7.3% (4-12) Eosinophils (%) (Auto) 2.3% (0-5) Basophils (%) (Auto) 0.2% (0-3) Prothrombin Time 11.1sec (8.1-12.5) Prothromb Time International Ratio 1.04ratio Sodium Level 139mEq/L (134-144) Potassium Level 4.0mEq/L (3.5-5.2) Chloride Level 98mEq/L (97-108) Carbon Dioxide Level 25mmol/L (18-29) Blood Urea Nitrogen 30mg/dL (8-27) Creatinine 1.24mg/dL (0.57-1.00) Estimat Glomerular Filtration Rate 63mL/min (>59) Glucose Level 202mg/dL (60-99) Lactic Acid Level 2.0mmol/L (0.4-2.0) Calcium Level 9.2mg/dL (8.5-10.1) Magnesium Level 1.8mg/dL (1.6-2.6) Total Bilirubin 0.6mg/dL (0.0-1.2) Aspartate Amino Transf (AST/SGOT) 20U/L (0-50) Alanine Aminotransferase (ALT/SGPT) 25U/L (0-32) Alkaline Phosphatase 153U/L (25-165) Total Protein 7.6g/dL (6.4-8.4) Albumin 3.7g/dL (3.4-5.0) Re-Eval/Medical Decision Med Decision/Clinical Course 61-year-old female presents with a days of diarrhea and now becoming bloody. Sample obtained here is just blood-tinged mucus. Submitted for [employer] evaluation. This is likely infectious, with antecedent risk factors for C. difficile. Begun empirically with metronidazole pending results this afternoon. Diarrheal frequency is dropped off dramatically during her stay here, without any treatment. Received IV fluids amounting to 3 L. Able to take by mouth. Discharged now in stable and improved condition. She is nominally on Coumadin but not anticoagulated per her INR. Source of Hx: Old records Time of Eval: 03:59 Patient Status: Condition improved Re-Evaluation/Progress Note: Pt rechecked, who is resting comfortably. The diagnosis and plan for discharge are discussed. The pt understands and agrees with the plan. All questions are addressed at this time. Counseled Regarding: Diagnosis, Lab results, Need for follow-up, When/why to return to ED Discharge & Departure Primary Impression: Infectious diarrhea Disposition: Home Discharge Condition All VS Reviewed: Yes Condition: Stable Patient Instructions: Chronic Diarrhea (ED) Additional Instructions: Begin Flagyl three times daily for seven days. Follow-up with your doctor in the office. We will have stool results later today. If some change in therapy is suggested by the lab results, we will contact you. Referrals: Harris Villeda MD (PCP) Scribe Attestation Portions of this note were transcribed by Aide Harding. I, Dr. Wiggins personally performed the history, physical exam and medical decision-making; I reviewed and confirmed the accuracy of the information in the transcribed note. copies to: Harris Villeda MD, Christopher W MD Nov 22, 2016 22:48 AIDE HARDING Nov 22, 2016 22:58
[2016-11-22] MEDS ORDERED: 0.9% Sodium Chloride 1,000 ML IV ONE (23:00)
[2016-11-22 23:54] LABS: BASOPHILS % (AUTO) 0.2 % (0-3); EOSINOPHILS % (AUTO) 2.3 % (0-5); MONOCYTES % (AUTO) 7.3 % (4-12); Mean Corpuscular Hemoglobin 30.2 pg (27.0-35.0); Mean Corpuscular Volume 90.9 fL (81-100); Platelet Count 273 bil/L (150-400)
[2016-11-23 00:11] LABS: INR 1.04 ratio
[2016-11-23 00:22] LABS: Magnesium 1.8 mg/dL (1.6-2.6)
[2016-11-23] MEDS ORDERED: 0.9% Sodium Chloride 1,000 ML IV ONE ×2 (01:30→04:00)
[2016-11-23 01:37] VITALS: BP 102/50; PULSE 60; RESP 16; O2SAT 96
[2016-11-23 03:58] VITALS: BP 132/58; PULSE 62; RESP 16; O2SAT 92
[2016-11-23] MEDS ORDERED: METR500T19 PO (04:12)
[2016-11-23 04:55] VITALS: BP 112/43; PULSE 68; RESP 16; O2SAT 94
== END 2016-11-23 04:56 | disposition home or self-care (01) ==
LOC: SED 21:45
DX: A09 Infectious gastroenteritis and colitis, unspecified (principal); R10.9 Unspecified abdominal pain; I11.9 Hypertensive heart disease without heart failure; I48.0 Paroxysmal atrial fibrillation; I25.10 Atherosclerotic heart disease of native coronary artery without angina pectoris; K21.9 Gastro-esophageal reflux disease without esophagitis; E11.59 Type 2 diabetes mellitus with other circulatory complications; Z95.5 Presence of coronary angioplasty implant and graft; Z79.4 Long term (current) use of insulin; Z79.82 Long term (current) use of aspirin
CPT/HCPCS: 36415; 80053; 83605; 83735; 85025; 85610; 87507; 96360; 96361; 99284; J7030